=== PATIENT | male | born 1955 | race Caucasian/White ===

== ENCOUNTER 2016-12-01 03:45 | Observation (INO) | payer OTHER ==
[~2016-12-01] VITALS: Ht 172.7 cm; Wt 100.0 kg
[2016-12-01] VITALS (10 sets, daily range): BP systolic 125–182; BP diastolic 65–89; PULSE 86–99; RESP 16–24; TEMP 97.5–98.7; O2SAT 96–99
[2016-12-01] MEDS ORDERED: METF1000 PO (03:54)
[2016-12-01] MEDS ORDERED: GLIP5TAB8 PO (03:55)
[2016-12-01] MEDS ORDERED: PRAV20TA2 PO (03:55)
[2016-12-01] MEDS ORDERED: LISI-519 PO (03:55)
[2016-12-01] MEDS ORDERED: ATOR20TA15 PO (03:55)
[2016-12-01] MEDS ORDERED: SODIUM CHLOR 0.9% 1000 ML INJ 1,000 ML IV ONE ×2 (04:10→04:40)
[2016-12-01] MEDS ORDERED: SODIUM CHLORIDE 0.9% FLUSH 10 ML FLUSH IVF PRN (04:15)
[2016-12-01 04:31] LABS: AUTOMATED NEUTROPHIL # 5.6 TH/MM3 (1.8-7.7); BASOPHIL % 0.3 % (0.0-2.0); EOSINOPHIL % 0.4 % (0.0-4.0); HEMATOCRIT 36.6 % (39.0-51.0); HEMO FLAGS DIFF FINAL; LYMPH % 17.9 % (9.0-44.0); LYMPHOCYTE # 1.3 TH/MM3 (1.0-4.8); MEAN CORPUSCULAR HEMOGLOBIN 31.9 PG (27.0-34.0); MEAN CORPUSCULAR HGB CONC 34.3 % (32.0-36.0); MONO % 5.9 % (0.0-8.0); NEUT % 75.5 % (16.0-70.0); PLATELET COUNT 199 TH/MM3 (150-450); RED BLOOD COUNT 3.94 MIL/MM3 (4.50-5.90); RED CELL DISTRIBUTION WIDTH 15.3 % (11.6-17.2); WHITE BLOOD COUNT 7.4 TH/MM3 (4.0-11.0)
[2016-12-01 04:59] LABS: ANION GAP 14 MEQ/L (5-15); AST (GOT) 40 U/L (15-37); BICARBONATE 24.8 MEQ/L (21.0-32.0); BLOOD UREA NITROGEN 6 MG/DL (7-18); CHLORIDE 92 MEQ/L (98-107); GLOMERULAR FILTRATION RATE 85 ML/MIN (>89); MAGNESIUM 0.9 MG/DL (1.5-2.5); POTASSIUM 3.9 MEQ/L (3.5-5.1); SODIUM (NA) 131 MEQ/L (136-145)
[2016-12-01 05:03] LABS: ALKALINE PHOSPHATASE 60 U/L (45-117); ALT (GPT) 47 U/L (12-78); BETA-HYDROXYBUTYRATE 0.22 MMOL/L (0.00-0.39); TOTAL BILIRUBIN ADULT 0.3 MG/DL (0.2-1.0)
--- NOTE | 2016-12-01 06:03 | PD ---
HPI Chief Complaint: Diabetic Time Seen by Provider: 04:10 Travel History International Travel<30 days: No Contact w/Intl Traveler<30days: No Traveled to known affect area: No History of Present Illness HPI The patient 61 years old. He has had severe cramps in the legs for about 3 weeks. This morning he was unable to walk and had to crawl across the floor of his house to call the ambulance who then brought him to the ER. He reports drinking alcohol about 5:00 and drinks daily for a few weeks. Prior to that he was not drinking alcohol at all. He has no other complaints today. He reports trying to increase his oral hydration with water. He's been eating bananas and take potassium supplements. [place] accustomed to the heat and humidity. [facility] Past Medical History Cardiovascular Problems: Yes (HTN) High Cholesterol: Yes Diabetes: Yes Patient Takes Glucophage: Yes (11/30/16) Hypertension: Yes Past Surgical History Surgical History: No Previous Surgery Social History Alcohol Use: Yes (VODKA X 5 DRINKS/DAY) Tobacco Use: No Substance Use: No Allergies-Medications (Allergen,Severity, Reaction): Coded Allergies: Penicillin (Verified Allergy, Unknown, 12/01/16) Reported Meds & Prescriptions Reported Meds & Active Scripts Active Reported Duloxetine DR (Duloxetine HCl) 40 Mg Capdr 40 Mg PO BID Buspirone (Buspirone HCl) 15 Mg Tab 15 Mg PO TID Pravastatin 20 Mg Tab 20 Mg PO DAILY Atorvastatin (Atorvastatin Calcium) 20 Mg Tab 20 Mg PO DAILY Lisinopril 5 Mg Tab 5 Mg PO DAILY Glipizide 5 Mg Tab 5 Mg PO BIDAC Take 30 minutes before a meal Metformin (Metformin HCl) 1,000 Mg Tab 1,000 Mg PO BIDPC With meals Review of Systems Except as stated in HPI: all other systems reviewed are Neg General / Constitutional: No: Fever Respiratory: Positive: Shortness of Breath Physical Exam Narrative GENERAL: 61-year-old male pleasant well-nourished well-developed SKIN: Focused skin assessment warm/dry. HEAD: Atraumatic. Normocephalic. EYES: Pupils equal and round. No scleral icterus. No injection or drainage. ENT: No nasal bleeding or discharge. Mucous membranes pink and moist. NECK: Trachea midline. No JVD. CARDIOVASCULAR: Regular rate and rhythm. No murmur appreciated. RESPIRATORY: No accessory muscle use. Clear to auscultation. Breath sounds equal bilaterally. GASTROINTESTINAL: Abdomen soft, non-tender, nondistended. Hepatic and splenic margins not palpable. MUSCULOSKELETAL: No obvious deformities. No clubbing. No cyanosis. No edema. NEUROLOGICAL: Awake and alert. No obvious cranial nerve deficits. Motor grossly within normal limits. Normal speech. PSYCHIATRIC: Appropriate mood and affect; insight and judgment normal. Data Data Last Documented VS Vital Signs Date Time Temp Pulse Resp B/P Pulse Ox O2 Delivery O2 Flow Rate FiO2 12/01/16 05:07 21 96 Room Air 12/01/16 03:47 97.6 94 182/89 Vital signs reviewed Orders Complete Blood Count With Diff (12/01/16 04:10) Comprehensive Metabolic Panel (12/01/16 04:10) Magnesium (Mg) (12/01/16 04:10) Phosphorus (Po4) (12/01/16 04:10) Beta Hydroxybutyrate (Acetone) (12/01/16 04:10) Urinalysis - C+S If Indicated (12/01/16 04:10) Blood Glucose (12/01/16 04:10) Blood Glucose (12/01/16 05:10) Ecg Monitoring (12/01/16 04:10) Iv Access Insert/Monitor (12/01/16 04:10) Oximetry (12/01/16 04:10) NPO (12/01/16 04:10) Sodium Chlor 0.9% 1000 Ml Inj (Ns 1000 M (12/01/16 04:10) Sodium Chlor 0.9% 1000 Ml Inj (Ns 1000 M (12/01/16 04:40) Sodium Chloride 0.9% Flush (Ns Flush) (12/01/16 04:15) Magnesium Sulfate 1 Gm Premix (Magnesium (12/01/16 06:15) Admit Order (Ed Use Only) (12/01/16 06:14) Labs Laboratory Tests Test 12/01/16 12/01/16 04:20 05:52 White Blood Count 7.4 TH/MM3 Red Blood Count 3.94 MIL/MM3 Hemoglobin 12.6 GM/DL Hematocrit 36.6 % Mean Corpuscular Volume 93.0 FL Mean Corpuscular Hemoglobin 31.9 PG Mean Corpuscular Hemoglobin 34.3 % Concent Red Cell Distribution Width 15.3 % Platelet Count 199 TH/MM3 Mean Platelet Volume 6.9 FL Neutrophils (%) (Auto) 75.5 % Lymphocytes (%) (Auto) 17.9 % Monocytes (%) (Auto) 5.9 % Eosinophils (%) (Auto) 0.4 % Basophils (%) (Auto) 0.3 % Neutrophils # (Auto) 5.6 TH/MM3 Lymphocytes # (Auto) 1.3 TH/MM3 Monocytes # (Auto) 0.4 TH/MM3 Eosinophils # (Auto) 0.0 TH/MM3 Basophils # (Auto) 0.0 TH/MM3 CBC Comment DIFF FINAL Differential Comment Sodium Level 131 MEQ/L Potassium Level 3.9 MEQ/L Chloride Level 92 MEQ/L Carbon Dioxide Level 24.8 MEQ/L Anion Gap 14 MEQ/L Blood Urea Nitrogen 6 MG/DL Creatinine 0.90 MG/DL Estimat Glomerular Filtration 85 ML/MIN Rate Random Glucose 61 MG/DL Calcium Level 8.0 MG/DL Phosphorus Level 2.8 MG/DL Magnesium Level 0.9 MG/DL Total Bilirubin 0.3 MG/DL Aspartate Amino Transf 40 U/L (AST/SGOT) Alanine Aminotransferase 47 U/L (ALT/SGPT) Alkaline Phosphatase 60 U/L Total Protein 6.9 GM/DL Albumin 3.7 GM/DL B-Hydroxybutyrate 0.22 MMOL/L Urine Color LIGHT-YELLOW Urine Turbidity CLEAR Urine pH 6.0 Urine Specific [place] 1.007 Urine Protein 30 mg/dL Urine Glucose (UA) NEG mg/dL Urine Ketones NEG mg/dL Urine Occult Blood NEG Urine Nitrite NEG Urine Bilirubin NEG Urine Urobilinogen LESS THAN 2.0 MG/DL Urine Leukocyte Esterase NEG Urine WBC LESS THAN 1 /hpf Urine Squamous Epithelial <1 /hpf Cells Urine Bacteria RARE /hpf Urine Mucus FEW /lpf Microscopic Urinalysis Comment CULT NOT INDICATED MDM Medical Decision Making Medical Screen Exam Complete: Yes Emergency Medical Condition: Yes Differential Diagnosis Electrolyte imbalance, anemia, alcoholism Narrative Course CBC & BMP Diagram 12/01/16 04:20 LFTs normal Mg 0.9 Patient has hypomagnesemia, presumably the etiology of his symptoms. We will replenish. IV hydration. D/w Dr Yusuf. Diagnosis Primary Impression: Hypomagnesemia Additional Impression: Muscle cramps Admitting Information Admitting Physician Requests: Observation Corey Jules MD Dec 01, 2016 06:03
[2016-12-01 06:04] LABS: BACTERIA, URINE RARE /hpf; BLOOD, URINE NEG (NEG); COMMENT (UR) CULT NOT INDICATED; CULTURE IF INDICATED CULT NOT INDICATED; GLUCOSE,URINE NEG (NEG); KETONE, URINE NEG (NEG); MUCUS URINE FEW /lpf (OCC); NITRITE,URINE NEG (NEG); SQUAMOUS EPITHELIAL CELL URINE <1 /hpf (0-5); URINE COLOR LIGHT-YELLOW (YELLW/STRAW)
[2016-12-01] MEDS ORDERED: cloNIDine HCL 0.1 MG TAB PO PRN (06:30)
[2016-12-01] MEDS ORDERED: GLUCAGON 1 MG/ML VIAL OTHER PRN (06:30)
[2016-12-01] MEDS ORDERED: BISACODYL 10 MG SUPP RECTAL PRN (06:30)
[2016-12-01] MEDS ORDERED: LORazepam 1 MG TAB PO PRN (06:30)
[2016-12-01] MEDS ORDERED: NALOXONE HCL 0.4 MG/ML AMP IV PRN (06:30)
[2016-12-01] MEDS ORDERED: ONDANSETRON HCL 4 MG/2 ML VIAL IVP PRN (06:30)
[2016-12-01] MEDS ORDERED: FLUMAZENIL 0.5 MG/5 ML VIAL IV PUSH PRN (06:30)
[2016-12-01] MEDS ORDERED: LORazepam 2 MG/ML VIAL IV PUSH PRN ×4 (06:30)
[2016-12-01] MEDS ORDERED: DEXTROSE 50% IN WATER 50 ML VIAL(D50) IV PUSH PRN (06:30)
[2016-12-01] MEDS ORDERED: LORazepam 2 MG TAB PO PRN (06:30)
[2016-12-01] MEDS ORDERED: ACETAMINOPHEN 325 MG TAB PO PRN (06:30)
[2016-12-01] MEDS ORDERED: SODIUM CHLORIDE 0.9% FLUSH 10 ML FLUSH IV FLUSH PRN (06:30)
[2016-12-01] MEDS: MAGNESIUM SULFATE 1 GM PREMIX 100 ML IV SCH ×2 (06:32→06:35)
[2016-12-01] MEDS ORDERED: BUSP15TA PO (06:34)
[2016-12-01] MEDS ORDERED: DULO-39 PO (06:34)
[2016-12-01] MEDS: INSULIN ASPART SUPPLEMENTAL SCALE SQ SCH ×4 (07:00→20:54)
--- NOTE | 2016-12-01 08:20 | HHI.HP ---
[facility] Service [facility] Primary Care Physician Unknown Admission Diagnosis Hypomagnesemia, Muscle Cramping Diagnoses: Chief Complaint: muscle cramps, inability to ambulate Travel History International Travel<30 Days: No Contact w/Intl Traveler <30 Da: No Traveled to Known Affected Are: No History of Present Illness 61-year-old male with history of hypertension, hyperlipidemia, diabetes, anxiety /depression, presents with a 3 week history of muscle cramps and 1 day history of inability to ambulate. The patient reports yesterday his entire body was in a "spasm" and he couldn't walk. He had to crawl to the phone to call 911. He states [facility] told him his blood glucose was in the 50s upon their arrival. He states he's never had problems with low blood sugar in the past. The patient denies any changes in diet except for increased alcohol intake. He states he was previously sober for 5 years and started drinking again this year, now drinking 5 vodka beverages daily. He denies any history of alcohol withdrawal. Last alcoholic beverage 8pm last night. He denies any chest pain, shortness of breath. He denies any abdominal pain, nausea/vomiting, but does report recent diarrhea. He has no other medical complaints at this time. Review of Systems Except as stated in HPI: all other systems reviewed are Neg Past Family Social History Past Medical History HTN HLD Diabetes Depression Anxiety Past Surgical History Dental extractions Denies any other prior surgeries. Reported Medications Duloxetine DR (Duloxetine HCl) 40 Mg Capdr 40 Mg PO BID Buspirone (Buspirone HCl) 15 Mg Tab 15 Mg PO TID Pravastatin 20 Mg Tab 20 Mg PO DAILY Atorvastatin (Atorvastatin Calcium) 20 Mg Tab 20 Mg PO DAILY Lisinopril 5 Mg Tab 5 Mg PO DAILY Glipizide 5 Mg Tab 5 Mg PO BIDAC Take 30 minutes before a meal Metformin (Metformin HCl) 1,000 Mg Tab 1,000 Mg PO BIDPC With meals Allergies: Coded Allergies: Penicillin (Verified Allergy, Unknown, 12/01/16) Active Ordered Medications Current Medications Medications (Trade) Dose Ordered Sig/[place] Route Start Time Stop Time Status Last Admin (NS Flush) 2 ml UNSCH PRN IVF 12/01/16 04:15 Lisinopril 5 mg 5 mg DAILY PO 12/01/16 09:00 (NS 1000 ml Inj) 1,000 ml @ 75 mls/hr [id number] IV 12/01/16 06:23 (NS Flush) 2 ml UNSCH PRN IV FLUSH 12/01/16 06:30 (NS Flush) 2 ml BID IV FLUSH 12/01/16 09:00 (Tylenol) 650 mg Q4H PRN PO 12/01/16 06:30 (Zofran Inj) 4 mg Q6H PRN IVP 12/01/16 06:30 (Dulcolax Supp) 10 mg DAILY PRN RECTAL 12/01/16 06:30 (Narcan Inj) 0.4 mg UNSCH PRN IV 12/01/16 06:30 (Romazicon Inj) 0.2 mg Q1M PRN IV PUSH 12/01/16 06:30 (Ativan) 1 mg Q4H PRN PO 12/01/16 06:30 (Ativan Inj) 1 mg Q4H PRN IV PUSH 12/01/16 06:30 (Ativan) 2 mg Q2H PRN PO 12/01/16 06:30 (Ativan Inj) 2 mg Q2H PRN IV PUSH 12/01/16 06:30 (Ativan Inj) 2 mg Q1H PRN IV PUSH 12/01/16 06:30 (Ativan Inj) 2 mg Q15M PRN IV PUSH 12/01/16 06:30 (Librium) 10 mg TID PRN PO 12/01/16 06:30 (Catapres) 0.1 mg Q6H PRN PO 12/01/16 06:30 (D50w (Vial) Inj) 25 ml UNSCH PRN IV PUSH 12/01/16 06:30 (Glucagon Inj) 1 mg UNSCH PRN OTHER 12/01/16 06:30 Family History Mother with 2 MIs that started age 58, diabetes, hyperlipidemia Father when the patient was 7years old, does not know medical history Social History Denies tobacco use Drinks alcohol, 5 vodka beverage daily Denies any illicit drug use Physical Exam Vital Signs Vital Signs Date Time Temp Pulse Resp B/P Pulse Ox O2 Delivery O2 Flow Rate FiO2 12/01/16 08:02 86 18 170/77 98 Room Air 12/01/16 05:07 21 96 Room Air 12/01/16 03:47 97.6 94 24 182/89 98 Physical Exam GENERAL: Well-nourished, well-developed middle aged male patient in [facility]. SKIN: Warm and dry. No rash. HEAD: Normocephalic. Atraumatic. EYES: Pupils equal and round. No scleral icterus. No injection or drainage. ENT: No nasal bleeding or discharge. Mucous membranes pink and moist. NECK: Supple. Trachea midline. CARDIOVASCULAR: Regular rate and rhythm. S1, S2 noted. No murmur appreciated. RESPIRATORY: No accessory muscle use. Clear to auscultation. Breath sounds equal bilaterally. GASTROINTESTINAL: Abdomen soft, non-tender, nondistended. Normoactive bowel sounds x4. MUSCULOSKELETAL: No obvious deformities. Extremities without clubbing, cyanosis , or edema. NEUROLOGICAL: Awake and alert. No obvious cranial nerve deficits. Motor grossly within normal limits. 5/5 muscle strength in bilateral upper and lower extremities. Normal speech. PSYCHIATRIC: Appropriate mood and affect; insight and judgment normal. Laboratory Laboratory Tests Test 12/01/16 12/01/16 04:20 05:52 White Blood Count 7.4 Red Blood Count 3.94 Hemoglobin 12.6 Hematocrit 36.6 Mean Corpuscular Volume 93.0 Mean Corpuscular Hemoglobin 31.9 Mean Corpuscular Hemoglobin 34.3 Concent Red Cell Distribution Width 15.3 Platelet Count 199 Mean Platelet Volume 6.9 Neutrophils (%) (Auto) 75.5 Lymphocytes (%) (Auto) 17.9 Monocytes (%) (Auto) 5.9 Eosinophils (%) (Auto) 0.4 Basophils (%) (Auto) 0.3 Neutrophils # (Auto) 5.6 Lymphocytes # (Auto) 1.3 Monocytes # (Auto) 0.4 Eosinophils # (Auto) 0.0 Basophils # (Auto) 0.0 CBC Comment DIFF FINAL Differential Comment Sodium Level 131 Potassium Level 3.9 Chloride Level 92 Carbon Dioxide Level 24.8 Anion Gap 14 Blood Urea Nitrogen 6 Creatinine 0.90 Estimat Glomerular Filtration 85 Rate Random Glucose 61 Calcium Level 8.0 Phosphorus Level 2.8 Magnesium Level 0.9 Total Bilirubin 0.3 Aspartate Amino Transf 40 (AST/SGOT) Alanine Aminotransferase 47 (ALT/SGPT) Alkaline Phosphatase 60 Total Protein 6.9 Albumin 3.7 B-Hydroxybutyrate 0.22 Urine Color LIGHT-YELLOW Urine Turbidity CLEAR Urine pH 6.0 Urine Specific [place] 1.007 Urine Protein 30 Urine Glucose (UA) NEG Urine Ketones NEG Urine Occult Blood NEG Urine Nitrite NEG Urine Bilirubin NEG Urine Urobilinogen LESS THAN 2.0 Urine Leukocyte Esterase NEG Urine WBC LESS THAN 1 Urine Squamous Epithelial <1 Cells Urine Bacteria RARE Urine Mucus FEW Microscopic Urinalysis Comment CULT NOT INDICATED Result Diagram: 12/01/1641912/01/16419 Assessment and Plan Assessment and Plan 61-year-old male with history of hypertension, hyperlipidemia, diabetes, anxiety /depression, presents with a 3 week history of muscle cramps and 1 day history of inability to ambulate. The patient reports yesterday his entire body was in a "spasm" and he couldn't walk. He had to crawl to the phone to call 911. He states [facility] told him his blood glucose was in the 50s upon their arrival. Muscle Cramping/Inability to Ambulate: likely secondary to electrolyte depletion and alcohol abuse. Na 131, Chloride 92, Mag 0.9. Also hold patient's statin, check CPK. Given 2L IVF bolus in the ER and replaced magnesium. Patient is feeling better. Consult PT/OT. Monitor labs. Hyponatremia: likely secondary to alcohol abuse. Given IVF with NS. Repeat BMP. Hypomagnesemia: Mag 0.9. Given IV Mag Sulfate x2G. Recheck mag level. Alcohol Abuse: counseled on cessation. Continue thiamine/folate/MV. CIWA protocol. Seizure precautions. Librium prn. Monitor for withdrawal. Anxiety/Depression: chronic, continue patient's Buspar, Duloxetine. HTN: Chronic, continue patient's lisinopril. Monitor BP. HLD: chronic, hold patient's statin with muscle cramping as above. Checking CPK. Diabetes Mellitus: Hold patient's Metformin and Glipizide for now. Monitor Accu- cheks and cover with SSI. Check HgbA1c. DVT Prophylaxis: SCDs Written by Mckenna Thomson, acting as scribe for Dr. Cid on 12/01/16 at 09:15 This note was transcribed by scribe Mckenna LAWRENCE. I, Dr. Latonia Cid personally performed the history, physical exam, and medical decision making; and confirmed the accuracy of the information in the transcribed note. Authenticated by Dr. Latonia Cid on 12/01/16 at 09:15 Discussed Condition With Patient, ED Mckenna Thomson PA-C Dec 01, 2016 08:20 Latonia Cid MD Dec 01, 2016 19:35
[2016-12-01] MEDS: SODIUM CHLORIDE 0.9% FLUSH 10 ML FLUSH IV FLUSH SCH ×2 (09:21→20:53)
[2016-12-01] MEDS: SODIUM CHLOR 0.9% 1000 ML INJ 1,000 ML IV SCH ×2 (09:21→19:43)
[2016-12-01] MEDS: LISINOPRIL 5 MG TAB PO SCH (10:02)
[2016-12-01] MEDS: DULoxetine HCl DR 20 MG CAP PO SCH ×2 (10:37→20:53)
[2016-12-01] MEDS: MULTIVITAMINS/MINERALS THERAPEUTIC TAB PO SCH (11:00)
[2016-12-01] MEDS: FOLIC ACID 1 MG TAB PO SCH (11:38)
[2016-12-01] MEDS: busPIRone HCL 5 MG TAB PO SCH ×2 (11:38→17:48)
[2016-12-01] MEDS: THIAMINE HCL 100 MG TAB PO SCH (11:44)
[2016-12-01 14:31] LABS: AUTOMATED NEUTROPHIL # 4.7 TH/MM3 (1.8-7.7); BASOPHIL % 0.3 % (0.0-2.0); EOSINOPHIL % 0.6 % (0.0-4.0); HEMATOCRIT 35.9 % (39.0-51.0); HEMO FLAGS DIFF FINAL; LYMPHOCYTE # 1.9 TH/MM3 (1.0-4.8); MEAN CELL VOLUME 93.4 FL (80.0-100.0); MEAN CORPUSCULAR HEMOGLOBIN 31.8 PG (27.0-34.0); MEAN CORPUSCULAR HGB CONC 34.1 % (32.0-36.0); MONO % 8.9 % (0.0-8.0); NEUT % 64.2 % (16.0-70.0); PLATELET COUNT 201 TH/MM3 (150-450); RED BLOOD COUNT 3.85 MIL/MM3 (4.50-5.90); RED CELL DISTRIBUTION WIDTH 15.2 % (11.6-17.2); WHITE BLOOD COUNT 7.3 TH/MM3 (4.0-11.0)
[2016-12-01 14:59] LABS: BICARBONATE 27.3 MEQ/L (21.0-32.0); MAGNESIUM 1.5 MG/DL (1.5-2.5); POTASSIUM 4.2 MEQ/L (3.5-5.1)
[2016-12-01 15:22] LABS: CKMB 8.4 NG/ML (0.5-3.6)
[2016-12-01 16:58] LABS: HEMOGLOBIN A1a 1.5 %; HEMOGLOBIN A1b 1.8 %; HEMOGLOBIN Ao 83.5 %; HEMOGLOBIN LA1C 2.6 %; HEMOGLOBIN P3 3.8 %
[2016-12-02 00:03] VITALS: BP 133/72; PULSE 88; RESP 18; TEMP 98.7; O2SAT 95
[2016-12-02 02:58] VITALS: BP 144/81; PULSE 93; RESP 20; TEMP 97.9; O2SAT 96
[2016-12-02] MEDS: SODIUM CHLOR 0.9% 1000 ML INJ 1,000 ML IV SCH ×2 (06:23→08:40)
[2016-12-02] MEDS: INSULIN ASPART SUPPLEMENTAL SCALE SQ SCH (06:26)
[2016-12-02 07:42] LABS: HEMATOCRIT 38.6 % (39.0-51.0); MEAN CELL VOLUME 94.7 FL (80.0-100.0); MEAN CORPUSCULAR HEMOGLOBIN 31.5 PG (27.0-34.0); MEAN CORPUSCULAR HGB CONC 33.3 % (32.0-36.0); PLATELET COUNT 158 TH/MM3 (150-450); RED BLOOD COUNT 4.07 MIL/MM3 (4.50-5.90); RED CELL DISTRIBUTION WIDTH 15.8 % (11.6-17.2); WHITE BLOOD COUNT 5.1 TH/MM3 (4.0-11.0)
[2016-12-02 07:47] VITALS: BP 168/81; PULSE 81; RESP 20; TEMP 97.9; O2SAT 98
[2016-12-02 07:58] LABS: HEMO FLAGS AUTO DIFF
[2016-12-02 08:04] LABS: BICARBONATE 26.3 MEQ/L (21.0-32.0); MAGNESIUM 1.7 MG/DL (1.5-2.5); POTASSIUM 4.5 MEQ/L (3.5-5.1)
[2016-12-02] MEDS: FOLIC ACID 1 MG TAB PO SCH (08:39)
[2016-12-02] MEDS: MULTIVITAMINS/MINERALS THERAPEUTIC TAB PO SCH (08:39)
[2016-12-02] MEDS: busPIRone HCL 5 MG TAB PO SCH (08:39)
[2016-12-02] MEDS: DULoxetine HCl DR 20 MG CAP PO SCH (08:39)
[2016-12-02] MEDS: LISINOPRIL 5 MG TAB PO SCH (08:39)
[2016-12-02] MEDS: SODIUM CHLORIDE 0.9% FLUSH 10 ML FLUSH IV FLUSH SCH (08:39)
[2016-12-02] MEDS: THIAMINE HCL 100 MG TAB PO SCH (08:39)
[2016-12-02 08:49] LABS: BANDS 5 % (0-6); BASOPHILS 1 % (0-2); EOSINOPHILS 1 % (0-4); NEUTROPHIL # MANUAL DIFF 3.6 TH/MM3 (1.8-7.7); PLATELET ESTIMATE SMEAR NORMAL (NORMAL); PLATELET MORPHOLOGY NORMAL (NORMAL); POLYS (SEG NEUTROPHILS) 66 % (16-70); SCAN/DIFF FINAL DIFF MANUAL; WBC DIFF SAMPLE 100
[2016-12-02] MEDS ORDERED: FOLI1TAB4 PO (09:43)
[2016-12-02] MEDS ORDERED: THERM PO (09:43)
[2016-12-02] MEDS ORDERED: VITA100T2 PO (09:43)
--- NOTE | 2016-12-02 09:50 | HHI.PR ---
Subjective Remarks Follow-up for muscle cramping. Patient denies any tremors, chest pain, shortness breath, palpitations, headache, lightheadedness. He still has some calf discomfort today from all of the muscle spasms yesterday. He reports good urine output. He states that he plans to stay off of alcohol. Objective Vitals Vital Signs Date Time Temp Pulse Resp B/P Pulse Ox O2 Delivery O2 Flow Rate FiO2 12/02/16 07:47 97.9 81 20 168/81 98 12/02/16 02:58 97.9 93 20 144/81 96 12/02/16 00:03 98.7 88 18 133/72 95 12/01/16 20:19 98.7 99 20 128/65 96 12/01/16 20:10 96 12/01/16 15:45 97.7 92 19 125/66 97 12/01/16 12:22 133/78 12/01/16 11:00 90 12/01/16 10:39 97.5 96 20 174/79 96 I/O 12/01/16 12/01/16 12/01/16 12/02/16 12/02/16 12/02/16 07:00 15:00 23:00 07:00 15:00 23:00 Intake Total 446 ml Balance 446 ml Intake Oral 221 ml IV Total 225 ml # Voids 1 Result Diagram: 12/02/16 0711 12/02/16 0711 Objective Remarks GENERAL: Well-developed well-nourished. In no acute distress. SKIN: Warm and dry. No lesions noted. HEENT: Normocephalic. Pupils equal and round. Mucous membranes pink and moist. CARDIOVASCULAR: Regular rate and rhythm. No murmur appreciated. RESPIRATORY: No accessory muscle use. Clear to auscultation. Breath sounds equal bilaterally. GASTROINTESTINAL: Abdomen soft, non-tender, nondistended. Bowel sounds x4. MUSCULOSKELETAL: No obvious deformities. No clubbing or cyanosis. No edema. NEUROLOGICAL: Awake and alert. No focal neurological deficits. Moves upper and lower extremities spontaneously. Normal speech. PSYCHIATRIC: Appropriate mood and affect; insight and judgment normal. A/P Assessment and Plan 61-year-old male with history of hypertension, hyperlipidemia, diabetes, anxiety /depression, presents with a 3 week history of muscle cramps and 1 day history of inability to ambulate. The patient reports yesterday his entire body was in a "spasm" and he couldn't walk. He had to crawl to the phone to call 911. He states [facility] told him his blood glucose was in the 50s upon their arrival. Muscle Cramping/Inability to Ambulate: likely secondary to multiple electrolyte abnormalities and hypoglycemia. Likely contributed to by alcohol abuse. Na 131 , Chloride 92, Mag 0.9, CPK 437, glucose 61. Given IVF and replaced magnesium. Hold statin and glipizide. Symptoms improved. Consulted PT/OT, no restrictions. Hyponatremia: likely secondary to alcohol abuse. Given IVF with NS. Repeat BMP with sodium within normal limits. Hypomagnesemia: Mag 0.9. Given IV Mag Sulfate x2G. repeat magnesium 1.7, within normal limits. Alcohol Abuse: counseled on cessation. Continue thiamine/folate/MV. Covered with CIWA protocol. No signs of withdrawal. Anxiety/Depression: chronic, continue patient's Buspar, Duloxetine. HTN: Chronic, continue patient's lisinopril. Monitor BP. HLD: chronic, but possible statin-induced myelopathy. CPK 437, mild elevation, downtrending. Hold patient's statin with muscle cramping as above and follow- up with PCP, discussed with the patient. Diabetes Mellitus: Presented with hypoglycemia. Coverage with SSI. Monitored Accu-Cheks. Well-controlled at home, hemoglobin A1c 6.2. Will resume home metformin. Hold glipizide with hypoglycemia, discussed with the patient. Follow-up with PCP. DVT Prophylaxis: SCDs Written by Ki Rivera, acting as scribe for Dr. Cid on 12/02/16 at 09:46. This note was transcribed by narinder LAWRENCE. I, Dr. Latonia Cid personally performed the history, physical exam, and medical decision making; and confirmed the accuracy of the information in the transcribed note. Authenticated by Dr. Latonia Cid on 12/02/16 at 09:46. Discharge time > 30 min Discharge Planning Discharge patient to home Condition on discharge: Improved Heart healthy diabetic Diet as tolerated Regular activity Rx written: Thiamine, folate, multivitamin Follow-up with primary care physician Ki Rivera Dec 02, 2016 09:50 Latonia Cid MD Dec 02, 2016 21:46
== END 2016-12-02 10:45 | disposition home or self-care (01) ==
LOC: NEPE 03:45 → NEDA 06:16 → NEPHCDU 10:10
PROVIDERS: ADMIT Hospitalist; ATTEND Hospitalist
DX: E83.42 Hypomagnesemia (principal); E87.1 Hypo-osmolality and hyponatremia; I10 Essential (primary) hypertension; E78.5 Hyperlipidemia, unspecified; E78.00 Pure hypercholesterolemia, unspecified; E11.649 Type 2 diabetes mellitus with hypoglycemia without coma; F10.10 Alcohol abuse, uncomplicated; F32.9 Major depressive disorder, single episode, unspecified; F41.9 Anxiety disorder, unspecified; Z79.84 Long term (current) use of oral hypoglycemic drugs
CPT/HCPCS: 80048; 80053; 81001; 82010; 82550; 82552; 82948; 83036; 83735; 84100; 85007; 85025; 85027; 96360; 97161; 97165; 99285; G0378; G8987; G8988; G8989; J1815; J3475; J7030

== ENCOUNTER 2017-11-22 17:26 | Inpatient (IN) | payer OTHER, MEDICARE ==
[~2017-11-22] VITALS: Ht 180.3 cm; Wt 107.5 kg
[~2017-11-22 17:26] MED LIST: BUSP15TA PO; DULO-39 PO; FOLI1TAB4 PO; LISI-519 PO; METF1000 PO; THERM PO; VITA100T2 PO
[2017-11-22 17:27] VITALS: BP 150/82; PULSE 75; RESP 19; TEMP 98.9; O2SAT 100
[2017-11-22 17:30] VITALS: O2SAT 100
[2017-11-22] MEDS ORDERED: SODIUM CHLOR 0.9% 1000 ML INJ 1,000 ML IV ONE (17:30)
--- NOTE | 2017-11-22 17:47 | RADRPT ---
EXAM DATE/TIME: 11/22/2017 17:36 [facility] COMPARISON: No previous studies available for comparison. INDICATIONS : Stroke alert, dysphasia. RADIATION DOSE: 46.25 CTDIvol (mGy) This report was called by Shahab Osullivan at 1744 MEDICAL HISTORY : Non-responsive. SURGICAL HISTORY : Non-responsive. ENCOUNTER: Initial ACUITY: 1 day PAIN SCALE: Non-responsive LOCATION: Bilateral head TECHNIQUE: Multiple contiguous axial images were obtained of the head. Using automated exposure control and adj ustment of the mA and/or kV according to patient size, radiation dose was kept as low as reasonably a chievable to obtain optimal diagnostic quality images. DICOM format image data is available electro nically for review and comparison. FINDINGS: CEREBRUM: The ventricles are normal for age. No evidence of midline shift, mass lesion, hemorrhage or acute in farction. No extra-axial fluid collections are seen. POSTERIOR FOSSA: The cerebellum and brainstem are intact. The 4th ventricle is midline. The cerebellopontine angle i s unremarkable. EXTRACRANIAL: The visualized portion of the orbits is intact. SKULL: The calvaria is intact. No evidence of skull fracture. CONCLUSION: Normal examination. Francisco Gudino MD on November 22, 2017 at 17:43 Board Certified Radiologist. This report was verified electronically.
[2017-11-22 17:50] VITALS: BP 190/87; PULSE 70; RESP 17; O2SAT 100
[2017-11-22] MEDS ORDERED: IODIXANOL 320 MG/ML 10 ML VIAL (for Rad CT) IVCONTRAST ONE (17:50)
[2017-11-22 17:51] LABS: AUTOMATED NEUTROPHIL # 4.5 TH/MM3 (1.8-7.7); BASOPHIL # 0.1 TH/MM3 (0-0.2); BASOPHIL % 1.3 % (0.0-2.0); EOSINOPHIL # 0.1 TH/MM3 (0-0.4); EOSINOPHIL % 0.9 % (0.0-4.0); HEMATOCRIT 35.5 % (39.0-51.0); HEMOGLOBIN 12.3 GM/DL (13.0-17.0); LYMPHOCYTE # 1.8 TH/MM3 (1.0-4.8); MEAN CELL VOLUME 94.6 FL (80.0-100.0); MEAN CORPUSCULAR HEMOGLOBIN 32.7 PG (27.0-34.0); MEAN CORPUSCULAR HGB CONC 34.6 % (32.0-36.0); MEAN PLATELET VOLUME 6.9 FL (7.0-11.0); MONO % 7.3 % (0.0-8.0); MONOCYTE # 0.5 TH/MM3 (0-0.9); NEUT % 64.5 % (16.0-70.0); PLATELET COUNT 219 TH/MM3 (150-450); RED BLOOD COUNT 3.75 MIL/MM3 (4.50-5.90); RED CELL DISTRIBUTION WIDTH 16.5 % (11.6-17.2)
--- NOTE | 2017-11-22 17:59 | RADRPT ---
EXAM DATE/TIME: 11/22/2017 17:41 [facility] COMPARISON: No previous studies available for comparison. INDICATIONS : Stroke alert, dysphasia. IV CONTRAST: 98 cc Visipaque (iodixanol) IV RADIATION DOSE: 28.65 CTDIvol (mGy) MEDICAL HISTORY : Non-responsive. SURGICAL HISTORY : Non-responsive. ENCOUNTER: Initial ACUITY: 1 day PAIN SCALE: Non-responsive LOCATION: Bilateral head TECHNIQUE: Volumetric scanning was performed using a multi-row detector CT scanner. The data was post processed with a variety of visualization algorithms including full volume maximum intensity projection, multi -planar sliding thin slab reformation, curved planar reformation, and surface rendering techniques. Using automated exposure control and adjustment of the mA and/or kV according to patient size, radiat ion dose was kept as low as reasonably achievable to obtain optimal diagnostic quality images. DICO M format image data is available electronically for review and comparison. FINDINGS: There is excellent visualization of the major intracranial arteries out to the second-order branch ve ssels. There is no evidence for aneurysm, vessel truncation or stenosis, and no evidence for vascula r malformation. CONCLUSION: Normal examination. Francisco Gudino MD on November 22, 2017 at 17:55 Board Certified Radiologist. This report was verified electronically.
[2017-11-22 18:04] LABS: INTERNATIONAL NORMALIZED RATIO 1.1 RATIO; PROTHROMBIN TIME - PATIENT 10.9 SEC (9.8-11.6)
[2017-11-22 18:11] LABS: TROPONIN I LESS THAN 0.02 NG/ML (0.02-0.05)
--- NOTE | 2017-11-22 18:13 | RADRPT ---
EXAM DATE/TIME: 11/22/2017 17:41 [facility] COMPARISON: No previous studies available for comparison. INDICATIONS : Stroke alert, dysphasia. IV CONTRAST: 98 cc Visipaque (iodixanol) IV ; Cumulative dose for multiple exams. RADIATION DOSE: 28.65 CTDIvol (mGy) ; Combined studies MEDICAL HISTORY : Non-responsive. SURGICAL HISTORY : Non-responsive. ENCOUNTER: Initial ACUITY: 1 day PAIN SCALE: Non-responsive LOCATION: Bilateral neck Elevated flow velocities and ICA/CCA ratios have been found to correlate with increased degrees of vessel stenosis, calculated as percentage of diameter relative to a normal segment of distal ICA/CCA. TECHNIQUE: Volumetric scanning was performed using a multirow detector CT scanner. The data was post processed with a variety of visualization algorithms including full-volume maximum intensity projection, multip lanar sliding thin-slab reformation, curved-planar reformation, and surface-rendering techniques. Us ing automated exposure control and adjustment of the mA and/or kV according to patient size, radiatio n dose was kept as low as reasonably achievable to obtain optimal diagnostic quality images. DICOM f ormat image data is available electronically for review and comparison. FINDINGS: AORTIC ARCH: There is a three-vessel origin of the great vessels from the aorta. No evidence of ostial narrowing. RIGHT CAROTID: Dense intimal calcifications at the carotid bifurcation. No significant stenotic narrowing. ICA is wi steve patent the skull base. LEFT CAROTID: Dense concentric calcific plaque involving the bulb and left ICA origin. No significant stenotic narr owing. Left ICA is widely patent the skull base. VERTEBRALS: The vertebral arteries have a symmetric diameter. No stenotic lesions are seen. CONCLUSION: No evidence of carotid stenosis. Francisco Gudino MD on November 22, 2017 at 18:08 Board Certified Radiologist. This report was verified electronically.
--- NOTE | 2017-11-22 18:49 | PD ---
HPI Time Seen by Provider: 17:30 History of Present Illness HPI Patient is a 62 year old male who comes in as a stroke alert. Per EMS, he was found in a parking lot, with low blood sugar. EMS reports a blood sugar of 31. EMS states they gave him D10 and he returned to normal. They say that a few minutes later he developed slurring of his speech, so they issued a stroke alert. Patient is asymptomatic on arrival. He says that he took his diabetes medication (Glyburide and Metformin) and did not eat today. His friend says that they were out since 11AM and had not eaten anything. She says they were drinking alcohol today. Severity is mild to moderate. PFSH Past Medical History Asthma: No Blood Disorders: No Anxiety: Yes Depression: Yes Heart Rhythm Problems: No Cancer: No Cardiovascular Problems: Yes (HTN) High Cholesterol: Yes Chemotherapy: No Chest Pain: No Congestive Heart Failure: No COPD: No Diabetes: Yes Endocrine: No Hypertension: Yes Immune Disorder: No Musculoskeletal: No Neurologic: No Psychiatric: No Reproductive: No Respiratory: No Radiation Therapy: No Sleep Apnea: No Thyroid Disease: No Social History Alcohol Use: Yes (VODKA X 5 DRINKS/DAY) Tobacco Use: No Substance Use: No Allergies-Medications (Allergen,Severity, Reaction): Coded Allergies: penicillin G (Unverified Allergy, Unknown, 03/24/17) Reported Meds & Prescriptions Reported Meds & Active Scripts Active Vitamin B-1 (Thiamine HCl) 100 Mg Tab 100 Mg PO DAILY Thera M Plus (Multivitamins/Minerals Therapeutic) 1 Tab 1 Tab PO DAILY Folate (Folic Acid) 1 Mg Tab 1 Mg PO DAILY Reported Duloxetine DR (Duloxetine HCl) 40 Mg Capdr 40 Mg PO BID Buspirone (Buspirone HCl) 15 Mg Tab 15 Mg PO TID Lisinopril 5 Mg Tab 5 Mg PO DAILY Metformin (Metformin HCl) 1,000 Mg Tab 1,000 Mg PO BIDPC With meals Review of Systems Except as stated in HPI: all other systems reviewed are Neg General / Constitutional: No: Fever, Chills Eyes: No: Blurred Vision HENT: No: Headaches, Vertigo, Lightheadedness Cardiovascular: No: Chest Pain or Discomfort Respiratory: No: Shortness of Breath Gastrointestinal: No: Nausea, Vomiting Musculoskeletal: No: Myalgias, Edema Skin: No Rash, No Change in Pigmentation Neurologic: Positive: Slurred Speech Physical Exam Narrative GENERAL: Awake and alert, in no acute distress. SKIN: Focused skin assessment warm/dry. No wounds or signs of infection. HEAD: Atraumatic. Normocephalic. EYES: Pupils equal and round and reactive. No scleral icterus. EOMI. ENT: Mucous membranes pink and moist. NECK: Trachea midline. No JVD. CARDIOVASCULAR: Regular rate and rhythm. No murmur appreciated. RESPIRATORY: No accessory muscle use. Clear to auscultation. Breath sounds equal bilaterally. GASTROINTESTINAL: Abdomen soft, non-tender, nondistended. MUSCULOSKELETAL: No obvious deformities. No clubbing. No cyanosis. No edema. NEUROLOGICAL: Awake and alert. No obvious cranial nerve deficits. Motor grossly within normal limits. Normal speech. PSYCHIATRIC: Appropriate mood and affect; insight and judgment normal. Data Data Last Documented VS Vital Signs Date Time Temp Pulse Resp B/P (MAP) Pulse Ox O2 Delivery O2 Flow Rate FiO2 11/22/17 17:30 100 Nasal Cannula 2.00 Orders Orders Diet Npo (11/22/17 Dinner) Activity Bed Rest (11/22/17 ) Electrocardiogram (11/22/17 ) I-Stat Profile (11/22/17 17:30) Prothrombin Time / Inr (Pt) (11/22/17 17:30) Act Partial Throm Time (Ptt) (11/22/17 17:30) Complete Blood Count With Diff (11/22/17 17:30) Fibrinogen (11/22/17 17:30) Creatine Kinase (Cpk) (11/22/17 17:30) Troponin I (11/22/17 17:30) Ua Includes Microscopic (11/22/17 17:30) Drug Screen, Random Urine (11/22/17 17:30) Type And Screen (11/22/17 17:30) Ct Brain W/O Iv Contrast(Rout) (11/22/17 ) Chest, Single Ap (11/22/17 ) Cta Brain W Iv Contrast W 3d (11/22/17 17:30) Cta Neck W Iv Contrast W 3d (11/22/17 17:30) Consult Neurology (11/22/17 ) Blood Glucose (11/22/17 17:30) Ecg Monitoring (11/22/17 17:30) Neuro Checks Q2HX12,Q4H (11/22/17 17:30) Nursing Bedside Swallow Assess .ONCE (11/22/17 17:30) Iv Access Insert/Monitor (11/22/17 17:30) NPO (11/22/17 17:30) Oximetry (11/22/17 17:30) Resp Oxygen Nc Stroke (11/22/17 ) Sodium Chlor 0.9% 1000 Ml Inj (Ns 1000 M (11/22/17 17:30) Cath For Specimen (11/22/17 17:30) Iodixanol 320 Inj (Rad Ct) (Visipaque 32 (11/22/17 17:50) (Hub Use Only)Inp Phy Cons/Ref (11/22/17 ) Labs Laboratory Tests Test 11/22/17 17:28 White Blood Count 7.0 TH/MM3 Red Blood Count 3.75 MIL/MM3 Hemoglobin 12.3 GM/DL Bedside Hemoglobin 12.9 G/DL Hematocrit 35.5 % Bedside Hematocrit 38.0 % Mean Corpuscular Volume 94.6 FL Mean Corpuscular Hemoglobin 32.7 PG Mean Corpuscular Hemoglobin Concent 34.6 % Red Cell Distribution Width 16.5 % Platelet Count 219 TH/MM3 Mean Platelet Volume 6.9 FL Neutrophils (%) (Auto) 64.5 % Lymphocytes (%) (Auto) 26.0 % Monocytes (%) (Auto) 7.3 % Eosinophils (%) (Auto) 0.9 % Basophils (%) (Auto) 1.3 % Neutrophils # (Auto) 4.5 TH/MM3 Lymphocytes # (Auto) 1.8 TH/MM3 Monocytes # (Auto) 0.5 TH/MM3 Eosinophils # (Auto) 0.1 TH/MM3 Basophils # (Auto) 0.1 TH/MM3 CBC Comment DIFF FINAL Differential Comment Prothrombin Time 10.9 SEC Prothromb Time International Ratio 1.1 RATIO Activated Partial Thromboplast Time 25.1 SEC Fibrinogen 252 mg/dL Bedside Sodium 129 MMOL/L Bedside Potassium 3.8 MMOL/L Bedside Chloride 88 MMOL/L Bedside Blood Urea Nitrogen 8 MG/DL Bedside Creatinine 1.2 MG/DL Bedside Glucose 119 MG/DL Total Creatine Kinase 197 U/L Troponin I LESS THAN 0.02 NG/ML MDM Medical Decision Making Medical Screen Exam Complete: Yes Emergency Medical Condition: Yes Medical Record Reviewed: Yes Differential Diagnosis CVA vs hypoglycemia vs TIA vs intoxication Narrative Course Patient is a 62 year old male who comes in as a stroke alert. Symptoms are resolved on arrival. IV established, labs sent. Connected to the cardiac nurse. Taken to CT for head CT. CT head shows no acute abnormalities. Patient's sugar dropped again to 77. Given something to eat. I spoke with neurologist, Dr. Osullivan who will see the patient in consultation. CTA head and neck show no acute abnormalities. Last 24 hours Impressions Neck CTA 11/22/17 1730 Signed Impressions: Service Date/Time: Wednesday, November 22, 2017 17:41 - CONCLUSION: No evidence of carotid stenosis. Francisco Gudino MD Head CTA 11/22/17 1730 Signed Impressions: Service Date/Time: Wednesday, November 22, 2017 17:41 - CONCLUSION: Normal examination. Francisco Gudino MD Head CT 11/22/17 0000 Signed Impressions: Service Date/Time: Wednesday, November 22, 2017 17:36 - CONCLUSION: Normal examination. Francisco Gudino MD Given a dose of D50. Will be admitted for further management. Diagnosis Primary Impression: Hypoglycemia Additional Impression: TIA (transient ischemic attack) Jacquelin Lawrence MD Nov 22, 2017 18:49
[2017-11-22 18:50] VITALS: BP 148/75; PULSE 72; RESP 18; O2SAT 100
--- NOTE | 2017-11-22 18:55 | RADRPT ---
EXAM DATE/TIME: 11/22/2017 18:20 [facility] COMPARISON: No previous studies available for comparison. INDICATIONS : Stroke Alert MEDICAL HISTORY : None. SURGICAL HISTORY : None. ENCOUNTER: Initial ACUITY: 1 day PAIN SCORE: Non-responsive. LOCATION: chest FINDINGS: A single view of the chest demonstrates the lungs to be symmetrically aerated without evidence of mas s, infiltrate or effusion. The cardiomediastinal contours are unremarkable. Spurring is seen in the thoracic spine. CONCLUSION: No acute disease. Francisco Gamboa MD on November 22, 2017 at 18:53 Board Certified Radiologist. This report was verified electronically.
[2017-11-22] MEDS ORDERED: DEXTROSE 50% IN WATER 50 ML SYRINGE IV PUSH ONE (19:00)
[2017-11-22] MEDS ORDERED: ASPIRIN 81 MG CHEW TAB CHEW ONE (19:00)
[2017-11-22] MEDS ORDERED: ACETAMINOPHEN 325 MG TAB PO PRN (19:15)
[2017-11-22] MEDS ORDERED: GLUCAGON 1 MG/ML VIAL OTHER PRN (19:15)
[2017-11-22] MEDS ORDERED: BISACODYL 10 MG SUPP RECTAL PRN (19:15)
[2017-11-22] MEDS ORDERED: DEXTROSE 50% IN WATER 50 ML VIAL(D50) IV PUSH PRN (19:15)
[2017-11-22] MEDS ORDERED: SENNOSIDES 8.6 MG TAB PO PRN (19:15)
[2017-11-22] MEDS ORDERED: ACETAMINOPHEN/HYDROcodone 325 MG/5 MG TAB PO PRN (19:15)
[2017-11-22] MEDS ORDERED: MAGNESIUM HYDROXIDE SUSP 30 ML CUP PO PRN (19:15)
[2017-11-22] MEDS ORDERED: ONDANSETRON HCL 4 MG/2 ML VIAL IVP PRN (19:15)
[2017-11-22] MEDS ORDERED: ACETAMINOPHEN/HYDROcodone 325 MG/10 MG TAB PO PRN (19:15)
[2017-11-22] MEDS ORDERED: LACTULOSE SYRUP 20 GM/30 ML CUP PO PRN (19:15)
[2017-11-22] MEDS ORDERED: ENALAPRILAT 1.25 MG/ML VIAL IV PUSH PRN (19:15)
[2017-11-22] MEDS ORDERED: SODIUM CHLORIDE 0.9% FLUSH 10 ML FLUSH IV FLUSH PRN ×2 (19:15)
--- NOTE | 2017-11-22 19:58 | HHI.HP ---
[facility] Unknown Admission Diagnosis AMS, hypoglycemia, TIA Diagnoses: (1) TIA (transient ischemic attack) Diagnosis: Principal (2) Hypoglycemia Diagnosis: Principal (3) HTN (hypertension) Diagnosis: Principal (4) Alcohol use Diagnosis: Principal Travel History International Travel<30 Days: No Contact w/Intl Traveler <30 Da: No Traveled to Known Affected Are: No History of Present Illness This is a 62-year-old male with a PMH of Anxiety, Depression, HTN and DM who is brought to the ER by EMS as a Stroke Alert. Per report, patient was found in a parking lot with slurred speech and gait instability. EMS noted BS of 31, s/p D10 w/ normalization of BS, however had recurrent episode of hypoglycemia. Pt now back to baseline, states he had sudden episode of garbled speech w/ gait instability, felt like he was falling to one side. Denies fall, LOC or head trauma. On Metformin 1000mg bid and Glipizide qd, states took both this morning. Denies recent nausea, vomiting or diarrhea. On arrival, BP 150/82, HR 75, O2 sat 100% on 2L NC, Afebrile. CBC essentially unremarkable. Na 129, otherwise unremarkable. Troponin negative. INR 1.1. CT Head with no acute findings. CXR negative. CTA Neck negative for carotid stenosis. CTA Head normal. Drinks 5 Vodka drinks per day, denies withdrawal. Review of Systems Except as stated in HPI: all other systems reviewed are Neg ROS: 14 point review of systems otherwise negative. Past Family Social History Past Medical History PMH: Anxiety, Depression, HTN and DM Past Surgical History PAST SURGICAL HISTORY: None Allergies: Coded Allergies: penicillin G (Unverified Allergy, Unknown, 03/24/17) Family History PAST FAMILY HISTORY: Reviewed. No h/o DM or CAD Social History PAST SOCIAL HISTORY: Drinks 5 Vodka drinks/day. Negative for tobacco or drugs. Physical Exam Vital Signs Vital Signs Date Time Temp Pulse Resp B/P (MAP) Pulse Ox O2 Delivery O2 Flow Rate FiO2 11/22/17 18:50 72 18 148/75 (99) 100 Nasal Cannula 2.00 11/22/17 18:40 100 Nasal Cannula 2.00 11/22/17 17:50 70 17 190/87 (121) 100 Nasal Cannula 2.00 11/22/17 17:30 100 Nasal Cannula 2.00 11/22/17 17:30 100 2.00 11/22/17 17:27 98.9 75 19 150/82 (104) 100 Physical Exam PE: GENERAL: Pleasant middle-age male in no acute distress. Awake alert oriented HEENT: PERRLA, EOMI. No scleral icterus or conjunctival pallor. No lid lag or facial droop. CARDIOVASCULAR: Regular rate and rhythm. No obvious murmurs to auscultation. No chest tenderness to palpation. RESPIRATORY: No obvious rhonchi or wheezing. Clear to auscultation. Breath sounds equal bilaterally. GASTROINTESTINAL: Abdomen soft, non-tender, nondistended. BS normal. MUSCULOSKELETAL: Extremities without clubbing, cyanosis, or edema. No obvious deformities. NEUROLOGICAL: Awake, alert and oriented x4. No focal neurologic deficits. Moving both upper and lower extremities spontaneously. Laboratory Laboratory Tests Test 11/22/17 17:28 White Blood Count 7.0 Red Blood Count 3.75 Hemoglobin 12.3 Bedside Hemoglobin 12.9 Hematocrit 35.5 Bedside Hematocrit 38.0 Mean Corpuscular Volume 94.6 Mean Corpuscular Hemoglobin 32.7 Mean Corpuscular Hemoglobin Concent 34.6 Red Cell Distribution Width 16.5 Platelet Count 219 Mean Platelet Volume 6.9 Neutrophils (%) (Auto) 64.5 Lymphocytes (%) (Auto) 26.0 Monocytes (%) (Auto) 7.3 Eosinophils (%) (Auto) 0.9 Basophils (%) (Auto) 1.3 Neutrophils # (Auto) 4.5 Lymphocytes # (Auto) 1.8 Monocytes # (Auto) 0.5 Eosinophils # (Auto) 0.1 Basophils # (Auto) 0.1 CBC Comment DIFF FINAL Differential Comment Prothrombin Time 10.9 Prothromb Time International Ratio 1.1 Activated Partial Thromboplast Time 25.1 Fibrinogen 252 Bedside Sodium 129 Bedside Potassium 3.8 Bedside Chloride 88 Bedside Blood Urea Nitrogen 8 Bedside Creatinine 1.2 Bedside Glucose 119 Total Creatine Kinase 197 Troponin I LESS THAN 0.02 Result Diagram: 11/22/17 1728 Caprini VTE Risk Assessment Caprini VTE Risk Assessment: No/Low Risk (score <= 1) Caprini Risk Assessment Model Point Value = 1 Point Value = 2 Point Value = 3 Point Value = 5 Age 41-60 Minor surgery BMI > 25 kg/m2 Swollen legs Varicose veins or History of unexplained or recurrent spontaneous Oral contraceptives or hormone replacement Sepsis (< 1 month) Serious lung disease, including pneumonia (< 1 month) Abnormal pulmonary function Acute myocardial infarction Congestive heart failure (< 1 month) History of inflammatory bowel disease Medical patient at bed rest Age 61-74 Arthroscopic surgery Major open surgery (> 45 min) Laparoscopic surgery (> 45 min) Malignancy Confined to bed (> 72 hours) Immobilizing plaster cast Central venous access Age >= 75 History of VTE Family history of VTE Factor V Leiden Prothrombin [id number] Lupus anticoagulant Anticardiolipin antibodies Elevated serum homocysteine Heparin-induced thrombocytopenia Other congenital or acquired thrombophilia Stroke (< 1 month) Elective arthroplasty Hip, pelvis, or leg fracture Acute spinal cord injury (< 1 month) Prophylaxis Regimen Total Risk Factor Score Risk Level Prophylaxis Regimen 0-1 Low Early ambulation 2 Moderate Order ONE of the following: *Sequential Compression Device (SCD) *Heparin 5000 units SQ BID 3-4 Higher Order ONE of the following medications: *Heparin 5000 units SQ TID *Enoxaparin/Lovenox 40 mg SQ daily (WT < 150 kg, CrCl > 30 mL/min) *Enoxaparin/Lovenox 30 mg SQ daily (WT < 150 kg, CrCl > 10-29 mL/min) *Enoxaparin/Lovenox 30 mg SQ BID (WT < 150 kg, CrCl > 30 mL/min) AND/OR *Sequential Compression Device (SCD) 5 or more Highest Order ONE of the following medications: *Heparin 5000 units SQ TID (Preferred with Epidurals) *Enoxaparin/Lovenox 40 mg SQ daily (WT < 150 kg, CrCl > 30 mL/min) *Enoxaparin/Lovenox 30 mg SQ daily (WT < 150 kg, CrCl > 10-29 mL/min) *Enoxaparin/Lovenox 30 mg SQ BID (WT < 150 kg, CrCl > 30 mL/min) AND *Sequential Compression Device (SCD) Assessment and Plan Problem List: (1) TIA (transient ischemic attack) ICD Code: G45.9 - Transient cerebral ischemic attack, unspecified Status: Acute (2) Hypoglycemia ICD Code: E16.2 - Hypoglycemia, unspecified Status: Acute (3) HTN (hypertension) ICD Code: I10 - Essential (primary) hypertension (4) Alcohol use ICD Code: Z78.9 - Other specified health status Assessment and Plan A/P: 1. TIA: brought to ER as Stroke Alert for acute slurred speech/gait instability, symptoms resolved spontaneously after few minutes, likely attributed to hypoglycemic episode, BS 31. CT Head w/ no acute findings, CTA Head/Neck w/ no abnormalities, images reviewed by me. Dr. Conley consulted, will evaluate in am. Neuro checks, Echo to eval for possible thromboembolic event, initial trop negative, check serial cardiac enzymes to eval for possible underlying ischemia. 2. Hypoglycemia: BS 31, s/p D10 w/ recurrent episodes of hypoglycemia. Start Hypoglycemic Protocol. Hold home Metformin/Glipizide. Accu-Checks q2h x12h, then q4h once stabilized. 3. HTN: Uncontrolled. BP 190's on arrival, will monitor, hold antihypertensives for now in light of possible TIA. 4. DVT Prophylaxis: SCD/Teds 5. Social work for d/c planning as needed. 6. Case discussed w/ ER physician at length, labs/records/imaging reviewed by me. Physician Certification 2 Midnight Certification Type: Admission for Inpatient Services Order for Inpatient Services The services are ordered in accordance with Medicare regulations or non- Medicare payer requirements, as applicable. In the case of services not specified as inpatient-only, they are appropriately provided as inpatient services in accordance with the 2-midnight benchmark. Estimated LOS (days): 2 days is the estimated time the patient will need to remain in the hospital, assuming treatment plan goals are met and no additional complications. Post-Hospital Plan: Not yet determined Chrystal Varma MD Nov 22, 2017 19:58
[2017-11-22 21:00] VITALS: BP 135/69; PULSE 84; RESP 17; TEMP 97.6; O2SAT 98
[2017-11-22] MEDS ORDERED: PRAVASTATIN SOD 40 MG TAB PO SCH (21:00)
[2017-11-22] MEDS: SODIUM CHLORIDE 0.9% FLUSH 10 ML FLUSH IV FLUSH SCH ×2 (21:00→21:52)
[2017-11-22] MEDS ORDERED: FLUMAZENIL 0.5 MG/5 ML VIAL IV PUSH PRN (21:30)
[2017-11-22] MEDS ORDERED: HALOPERIDOL LACTATE 5 MG/ML AMP IM PRN (21:30)
[2017-11-22] MEDS ORDERED: LORazepam 2 MG/ML VIAL IV PUSH PRN ×4 (21:30)
[2017-11-22] MEDS ORDERED: LORazepam 2 MG TAB PO PRN (21:30)
[2017-11-22] MEDS ORDERED: LORazepam 1 MG TAB PO PRN (21:30)
[2017-11-22] MEDS: DOCUSATE SODIUM 50 MG/SENNA 8.6 MG TAB PO SCH (21:52)
[2017-11-22] MEDS: THIAMINE HCL 100 MG TAB PO SCH (21:52)
[2017-11-22 22:20] VITALS: PULSE 81
[2017-11-23] VITALS (9 sets, daily range): BP systolic 123–180; BP diastolic 62–89; PULSE 79–87; RESP 18–19; TEMP 97.1–98.2; O2SAT 96–97
[2017-11-23 00:53] LABS: BILIRUBIN, URINE NEG (NEG); BLOOD, URINE NEG (NEG); GLUCOSE,URINE NEG (NEG); KETONE, URINE NEG (NEG); NITRITE,URINE NEG (NEG); URINE COLOR LIGHT-YELLOW (YELLW/STRAW); URINE LEUKOCYTE ESTERASE NEG (NEG)
[2017-11-23 07:37] LABS: AUTOMATED NEUTROPHIL # 4.5 TH/MM3 (1.8-7.7); BASOPHIL % 0.7 % (0.0-2.0); EOSINOPHIL % 0.8 % (0.0-4.0); HEMATOCRIT 35.9 % (39.0-51.0); HEMOGLOBIN 12.2 GM/DL (13.0-17.0); LYMPH % 19.5 % (9.0-44.0); LYMPHOCYTE # 1.3 TH/MM3 (1.0-4.8); MEAN CELL VOLUME 95.3 FL (80.0-100.0); MEAN CORPUSCULAR HEMOGLOBIN 32.4 PG (27.0-34.0); MEAN PLATELET VOLUME 7.5 FL (7.0-11.0); MONO % 10.7 % (0.0-8.0); MONOCYTE # 0.7 TH/MM3 (0-0.9); NEUT % 68.3 % (16.0-70.0); PLATELET COUNT 193 TH/MM3 (150-450); RED BLOOD COUNT 3.77 MIL/MM3 (4.50-5.90); RED CELL DISTRIBUTION WIDTH 16.6 % (11.6-17.2); WHITE BLOOD COUNT 6.6 TH/MM3 (4.0-11.0)
[2017-11-23 07:57] LABS: ALBUMIN 3.4 GM/DL (3.4-5.0); ALT (GPT) 58 U/L (12-78); AST (GOT) 62 U/L (15-37); BICARBONATE 23.7 MEQ/L (21.0-32.0); CALCIUM 8.1 MG/DL (8.5-10.1); CHLORIDE 99 MEQ/L (98-107); CHOLESTEROL 143 MG/DL (120-200); CREATININE 0.79 MG/DL (0.60-1.30); GLOMERULAR FILTRATION RATE 99 ML/MIN (>89); GLUCOSE,RANDOM 77 MG/DL (74-106); SODIUM (NA) 133 MEQ/L (136-145); TRIGLYCERIDES 81 MG/DL (42-150)
[2017-11-23 08:05] LABS: ALKALINE PHOSPHATASE 58 U/L (45-117); BLOOD UREA NITROGEN 9 MG/DL (7-18); CHOLESTEROL/ HDL RATIO 2.89 RATIO; HDL CHOLESTEROL 49.4 MG/DL (40.0-60.0); LDL CHOLESTEROL 77 MG/DL (0-99); TOTAL BILIRUBIN ADULT 0.5 MG/DL (0.2-1.0); TOTAL PROTEIN 7.1 GM/DL (6.4-8.2); TROPONIN I LESS THAN 0.02 NG/ML (0.02-0.05)
[2017-11-23] MEDS: THIAMINE HCL 100 MG TAB PO SCH (08:39)
[2017-11-23] MEDS: DOCUSATE SODIUM 50 MG/SENNA 8.6 MG TAB PO SCH (08:40)
[2017-11-23] MEDS: SODIUM CHLORIDE 0.9% FLUSH 10 ML FLUSH IV FLUSH SCH ×2 (08:43)
[2017-11-23] MEDS ORDERED: FOLIC ACID 1 MG TAB PO SCH (09:00)
[2017-11-23] MEDS ORDERED: MULTIVITAMINS/MINERALS THERAPEUTIC TAB PO SCH (09:00)
[2017-11-23] MEDS ORDERED: ASPIRIN 81 MG CHEW TAB PO SCH (09:00)
--- NOTE | 2017-11-23 10:13 | EKG ---
Date Performed: 11/22/2017 Time Performed: 19:26:59 PTAGE: 62 years EKG: Sinus rhythm WITH FIRST DEGREE AV BLOCK ABNORMAL ECG NO PREVIOUS TRACING DOCTOR: Leandro Kelsey Interpretating Date/Time 11/23/2017 10:11:47
--- NOTE | 2017-11-23 10:25 | HHI.PR ---
Subjective Remarks This is a 62-year-old male with a PMH of Anxiety, Depression, HTN and DM who is brought to the ER by EMS as a Stroke Alert. Per report, patient was found in a parking lot with slurred speech and gait instability. EMS noted BS of 31, s/p D10 w/ normalization of BS, however had recurrent episode of hypoglycemia. Pt now back to baseline, states he had sudden episode of garbled speech w/ gait instability, felt like he was falling to one side. Denies fall, LOC or head trauma. On Metformin 1000mg bid and Glipizide qd, states took both this morning. Denies recent nausea, vomiting or diarrhea. On arrival, BP 150/82, HR 75, O2 sat 100% on 2L NC, Afebrile. CBC essentially unremarkable. Na 129, otherwise unremarkable. Troponin negative. INR 1.1. CT Head with no acute findings. CXR negative. CTA Neck negative for carotid stenosis. CTA Head normal. Drinks 5 Vodka drinks per day, denies withdrawal. 11-23 patient is not a stroke alert. Was found to be hypoglycemic with a blood sugars in the 30s patient was taking his oral glycemic's without eating. Patient drinks daily. Is ambulating well. We will restart his blood pressure medications. And he can be discharged home today. Discharge to home today Follow up with his primary Dr. Vergara Objective Vitals Vital Signs Date Time Temp Pulse Resp B/P (MAP) Pulse Ox O2 Delivery O2 Flow Rate FiO2 11/23/17 08:00 97.5 83 19 179/89 (119) 96 11/23/17 05:30 156/72 (100) 11/23/17 04:15 98.2 87 18 174/78 (110) 96 11/23/17 04:05 83 11/23/17 01:08 97 11/23/17 00:20 97.6 84 18 123/62 (82) 96 11/23/17 00:00 79 11/22/17 22:20 81 11/22/17 21:00 97.6 84 17 135/69 (91) 98 11/22/17 20:39 11/22/17 18:50 72 18 148/75 (99) 100 Nasal Cannula 2.00 11/22/17 18:40 100 Nasal Cannula 2.00 11/22/17 17:50 70 17 190/87 (121) 100 Nasal Cannula 2.00 11/22/17 17:30 100 Nasal Cannula 2.00 11/22/17 17:30 100 2.00 11/22/17 17:27 98.9 75 19 150/82 (104) 100 I/O 11/22/17 11/22/17 11/22/17 11/23/17 11/23/17 11/23/17 07:00 15:00 23:00 07:00 15:00 23:00 Intake Total 955 ml Output Total 1275 ml Balance -320 ml Intake Oral 480 ml IV Total 475 ml Output Urine Total 1275 ml # Bowel Movements 0 Result Diagram: 11/23/17 0603 11/23/17 0603 Other Results Laboratory Tests Test 11/22/17 17:28 11/23/17 00:16 11/23/17 00:18 11/23/17 06:03 White Blood Count 7.0 TH/MM3 6.6 TH/MM3 Red Blood Count 3.75 MIL/MM3 3.77 MIL/MM3 Hemoglobin 12.3 GM/DL 12.2 GM/DL Bedside Hemoglobin 12.9 G/DL Hematocrit 35.5 % 35.9 % Bedside Hematocrit 38.0 % Mean Corpuscular Volume 94.6 FL 95.3 FL Mean Corpuscular Hemoglobin 32.7 PG 32.4 PG Mean Corpuscular Hemoglobin Concent 34.6 % 34.0 % Red Cell Distribution Width 16.5 % 16.6 % Platelet Count 219 TH/MM3 193 TH/MM3 Mean Platelet Volume 6.9 FL 7.5 FL Neutrophils (%) (Auto) 64.5 % 68.3 % Lymphocytes (%) (Auto) 26.0 % 19.5 % Monocytes (%) (Auto) 7.3 % 10.7 % Eosinophils (%) (Auto) 0.9 % 0.8 % Basophils (%) (Auto) 1.3 % 0.7 % Neutrophils # (Auto) 4.5 TH/MM3 4.5 TH/MM3 Lymphocytes # (Auto) 1.8 TH/MM3 1.3 TH/MM3 Monocytes # (Auto) 0.5 TH/MM3 0.7 TH/MM3 Eosinophils # (Auto) 0.1 TH/MM3 0.0 TH/MM3 Basophils # (Auto) 0.1 TH/MM3 0.0 TH/MM3 CBC Comment DIFF FINAL DIFF FINAL Differential Comment Prothrombin Time 10.9 SEC Prothromb Time International Ratio 1.1 RATIO Activated Partial Thromboplast Time 25.1 SEC Fibrinogen 252 mg/dL Bedside Sodium 129 MMOL/L Bedside Potassium 3.8 MMOL/L Bedside Chloride 88 MMOL/L Bedside Blood Urea Nitrogen 8 MG/DL Bedside Creatinine 1.2 MG/DL Bedside Glucose 119 MG/DL Total Creatine Kinase 197 U/L Troponin I LESS THAN 0.02 NG/ML LESS THAN 0.02 NG/ML LESS THAN 0.02 NG/ML Urine Color LIGHT-YELLOW Urine Turbidity CLEAR Urine pH 6.0 Urine Specific [place] 1.020 Urine Protein NEG mg/dL Urine Glucose (UA) NEG mg/dL Urine Ketones NEG mg/dL Urine Occult Blood NEG Urine Nitrite NEG Urine Bilirubin NEG Urine Urobilinogen LESS THAN 2.0 MG/DL Urine Leukocyte Esterase NEG Urine RBC LESS THAN 1 /hpf Urine WBC 1 /hpf Urine Opiates Screen NEG Urine Barbiturates Screen NEG Urine Amphetamines Screen NEG Urine Benzodiazepines Screen NEG Urine Cocaine Screen NEG Urine Cannabinoids Screen NEG Blood Urea Nitrogen 9 MG/DL Creatinine 0.79 MG/DL Random Glucose 77 MG/DL Total Protein 7.1 GM/DL Albumin 3.4 GM/DL Calcium Level 8.1 MG/DL Alkaline Phosphatase 58 U/L Aspartate Amino Transf (AST/SGOT) 62 U/L Alanine Aminotransferase (ALT/SGPT) 58 U/L Total Bilirubin 0.5 MG/DL Sodium Level 133 MEQ/L Potassium Level 4.1 MEQ/L Chloride Level 99 MEQ/L Carbon Dioxide Level 23.7 MEQ/L Anion Gap 10 MEQ/L Estimat Glomerular Filtration Rate 99 ML/MIN Triglycerides Level 81 MG/DL Cholesterol Level 143 MG/DL LDL Cholesterol 77 MG/DL HDL Cholesterol 49.4 MG/DL Cholesterol/HDL Ratio 2.89 RATIO Imaging Last Impressions Neck CTA 11/22/17 173 Signed Impressions: Service Date/Time: Wednesday, November 22, 2017 17:41 - CONCLUSION: No evidence of carotid stenosis. Francisco Gudino MD Head CTA 11/22/17 173 Signed Impressions: Service Date/Time: Wednesday, November 22, 2017 17:41 - CONCLUSION: Normal examination. Francisco Gudino MD Head CT 11/22/17 0000 Signed Impressions: Service Date/Time: Wednesday, November 22, 2017 17:36 - CONCLUSION: Normal examination. Francisco Gudino MD Chest X-Ray 11/22/17 0000 Signed Impressions: Service Date/Time: Wednesday, November 22, 2017 18:20 - CONCLUSION: No acute disease. Francisco Gamboa MD Objective Remarks GENERAL: Awake alert and oriented 3 talkative and cooperative SKIN: Warm and dry. HEAD: Atraumatic. Normocephalic. EYES: Pupils equal and round. No scleral icterus. No injection or drainage. Extraocular muscles intact ENT: No nasal bleeding or discharge. Mucous membranes pink and moist. Tongue is midline NECK: Trachea midline. No JVD. Supple CARDIOVASCULAR: Regular rate and rhythm. S1-S2 no S3-S4 no heave or thrill or rub or gallop RESPIRATORY: No accessory muscle use. Clear to auscultation. Breath sounds equal bilaterally. GASTROINTESTINAL: Abdomen soft, non-tender, nondistended. Hepatic and splenic margins not palpable. Obese MUSCULOSKELETAL: Extremities without clubbing, cyanosis, or edema. No obvious deformities. NEUROLOGICAL: Awake and alert. No obvious cranial nerve deficits. Motor grossly within normal limits. Five out of 5 muscle strength in the arms and legs. Normal speech. PSYCHIATRIC: Appropriate mood and affect; insight and judgment normal. Procedures None Medications and IVs Current Medications Sodium Chloride 1,000 ml @ 70 mls/hr [id number] ONCE IV Last administered on 11/22 19:10; Start 11/22/17 at 17:30; Stop 11/23/17 at 07:47; Status DC Iodixanol (VISIPAQUE 320 INJ (Rad CT)) 98 ml STK-MED ONCE IVCONTRAST Last administered on 11/22/17at 17:50; Start 11/22/17 at 17:50; Stop 11/22/17 at 17:51 ; Status DC Dextrose (D50w (Syr) Inj) 25 ml ONCE ONCE IV PUSH Last administered on 19:10; Start 11/22/17 at 19:00; Stop 11/22/17 at 19:01; Status DC Aspirin (Aspirin Chew) 324 mg ONCE ONCE CHEW Last administered on 11/22/17 19 :10; Start 11/22/17 at 19:00; Stop 11/22/17 at 19:01; Status DC Dextrose (D50w (Vial) Inj) 50 ml UNSCH PRN IV PUSH HYPOGLYCEMIA-SEE COMMENTS; Start 11/22/17 at 19:15 Glucagon (Glucagon Inj) 1 mg UNSCH PRN OTHER HYPOGLYCEMIA-SEE COMMENTS; Start 11/22/17 at 19:15 Sodium Chloride (NS Flush) 2 ml BID IV FLUSH Last administered on 11/22/17at 21: 52; Start 11/22/17 at 21:00 Sodium Chloride (NS Flush) 2 ml UNSCH PRN IV FLUSH FLUSH AFTER USING IV ACCESS ; Start 11/22/17 at 19:15 Enalaprilat (Vasotec Inj) 1.25 mg Q4H PRN IV PUSH For SBP > 220 or DBP > 120; Start 11/22/17 at 19:15 Aspirin (Aspirin Chew) 81 mg DAILY PO Last administered on 11/23/17at 08:40; Start 11/23/17 at 09:00 Pravastatin Sodium (Pravachol) 40 mg HS PO Last administered on 11/22/17at 21:52 ; Start 11/22/17 at 21:00 Sodium Chloride (NS Flush) 2 ml UNSCH PRN IV FLUSH FLUSH AFTER USING IV ACCESS ; Start 11/22/17 at 19:15 Sodium Chloride (NS Flush) 2 ml BID IV FLUSH ; Start 11/22/17 at 21:00 Ondansetron HCl (Zofran Inj) 4 mg Q6H PRN IVP NAUSEA OR VOMITING; Start at 19:15 Acetaminophen (Tylenol) 650 mg Q6H PRN PO FEVER/PAIN SCALE 1 TO 2; Start at 19:15 Acetaminophen/ Hydrocodone Bitart (Climax 5-325 Mg) 1 tab Q4H PRN PO PAIN SCALE 3 TO 5; Start 11/22/17 at 19:15 Acetaminophen/ Hydrocodone Bitart (Climax 10-325 Mg) 1 tab Q4H PRN PO PAIN SCALE 6 TO 10; Start 11/22/17 at 19:15 Senna/Docusate Sodium (Aruna-Colace) 1 tab BID PO Last administered on at 21:52; Start 11/22/17 at 21:00 Magnesium Hydroxide (Milk Of Magnesia Liq) 30 ml Q12H PRN PO Mild constipation ; Start 11/22/17 at 19:15 Sennosides (Senokot) 17.2 mg Q12H PRN PO Moderate constipation; Start 11/22/17 at 19:15 Bisacodyl (Dulcolax Supp) 10 mg DAILY PRN RECTAL SEVERE CONSITIPATION; Start at 19:15 Lactulose (Lactulose Liq) 30 ml DAILY PRN PO SEVERE CONSITIPATION; Start at 19:15 Folic Acid (Folate) 1 mg DAILY PO Last administered on 11/23/17at 08:40; Start 11/23/17 at 09:00; Stop 11/28/17 at 08:59 Thiamine HCl (Vitamin B1) 100 mg DAILY PO Last administered on 11/23/17at 08:39 ; Start 11/22/17 at 21:30 Multivitamins/ Minerals Therapeutic (Theragran M Tab) 1 tab DAILY PO Last administered on 11/23/17at 08:39; Start 11/23/17 at 09:00; Stop 11/28/17 at 08:59 Flumazenil (Romazicon Inj) 0.2 mg Q1M PRN IV PUSH SEE LABEL COMMENTS; Start at 21:30 Lorazepam (Ativan) 1 mg Q4H PRN PO CIWA 8 - 10; Start 11/22/17 at 21:30 Lorazepam (Ativan Inj) 1 mg Q4H PRN IV PUSH CIWA 8 - 10; Start 11/22/17 at 21: 30 Lorazepam (Ativan) 2 mg Q2H PRN PO CIWA 11-14; Start 11/22/17 at 21:30 Lorazepam (Ativan Inj) 2 mg Q2H PRN IV PUSH CIWA 11-14; Start 11/22/17 at 21:30 Lorazepam (Ativan Inj) 2 mg Q1H PRN IV PUSH CIWA 15-20; Start 11/22/17 at 21:30 Lorazepam (Ativan Inj) 2 mg Q15M PRN IV PUSH CIWA > 20; Start 11/22/17 at 21:30 Haloperidol Lactate (Haldol Inj) 2 mg Q15M PRN IM SEE LABEL COMMENTS; Start at 21:30 A/P Problem List: (1) TIA (transient ischemic attack) ICD Code: G45.9 - Transient cerebral ischemic attack, unspecified Status: Acute (2) Hypoglycemia ICD Code: E16.2 - Hypoglycemia, unspecified Status: Acute (3) HTN (hypertension) ICD Code: I10 - Essential (primary) hypertension (4) Alcohol use ICD Code: Z78.9 - Other specified health status Assessment and Plan 1. TIA: brought to ER as Stroke Alert for acute slurred speech/gait instability, symptoms resolved spontaneously after few minutes, likely attributed to hypoglycemic episode, BS 31. CT Head w/ no acute findings, CTA Head/Neck w/ no abnormalities, images reviewed by me. . Neuro checks, Echo to eval for possible thromboembolic event, initial trop negative, check serial cardiac enzymes to eval for possible underlying ischemia. Does not appear to be a TIA appears to be more a hypoglycemic event. Will discontinue neuro consult 2. Hypoglycemia: BS 31, s/p D10 w/ recurrent episodes of hypoglycemia. Start Hypoglycemic Protocol. Hold home Metformin/Glipizide. Accu-Checks q2h x12h, then q4h once stabilized. 3. HTN: Uncontrolled. BP 190's on arrival, will monitor, hold antihypertensives for now in light of possible TIA. Restart his blood pressure medications-doubt TIA suspect due to hypoglycemia 4. DVT Prophylaxis: SCD/Teds Discharge Planning We will DC to home later today Christian Yanes DO Nov 23, 2017 10:25
[2017-11-23] MEDS ORDERED: DULO-39 PO (10:32)
[2017-11-23] MEDS ORDERED: BUSP15TA PO (10:32)
[2017-11-23] MEDS ORDERED: FOLI1TAB6 PO (10:32)
[2017-11-23] MEDS ORDERED: ASPI81 PO (10:32)
[2017-11-23] MEDS ORDERED: THERM PO (10:32)
[2017-11-23] MEDS ORDERED: METF1000 PO (10:32)
[2017-11-23] MEDS ORDERED: PROT40TA PO (10:32)
[2017-11-23] MEDS ORDERED: PRAV40TA PO (10:32)
[2017-11-23] MEDS ORDERED: THIA100 PO (10:32)
[2017-11-23] MEDS ORDERED: LISI-515 PO (10:32)
--- NOTE | 2017-11-23 10:33 | HHI.DS ---
Discharge Summary Admission Date Nov 22, 2017 at 18:55 Discharge Date: Nov 23, 2017 Admitting Diagnosis AMS, hypoglycemia, TIA (1) TIA (transient ischemic attack) ICD Code: G45.9 - Transient cerebral ischemic attack, unspecified Diagnosis: Principal Status: Acute (2) Hypoglycemia ICD Code: E16.2 - Hypoglycemia, unspecified Diagnosis: Principal Status: Acute (3) HTN (hypertension) ICD Code: I10 - Essential (primary) hypertension Diagnosis: Secondary (4) Alcohol use ICD Code: Z78.9 - Other specified health status Diagnosis: Secondary Procedures None Brief History - From Admission This is a 62-year-old male with a PMH of Anxiety, Depression, HTN and DM who is brought to the ER by EMS as a Stroke Alert. Per report, patient was found in a parking lot with slurred speech and gait instability. EMS noted BS of 31, s/p D10 w/ normalization of BS, however had recurrent episode of hypoglycemia. Pt now back to baseline, states he had sudden episode of garbled speech w/ gait instability, felt like he was falling to one side. Denies fall, LOC or head trauma. On Metformin 1000mg bid and Glipizide qd, states took both this morning. Denies recent nausea, vomiting or diarrhea. On arrival, BP 150/82, HR 75, O2 sat 100% on 2L NC, Afebrile. CBC essentially unremarkable. Na 129, otherwise unremarkable. Troponin negative. INR 1.1. CT Head with no acute findings. CXR negative. CTA Neck negative for carotid stenosis. CTA Head normal. Drinks 5 Vodka drinks per day, denies withdrawal. CBC/BMP: 11/23/17 0603 11/23/17 0603 Significant Findings Laboratory Tests Test 11/22/17 17:28 11/23/17 00:16 11/23/17 00:18 11/23/17 06:03 Red Blood Count 3.75 MIL/MM3 (4.50-5.90) 3.77 MIL/MM3 (4.50-5.90) Hemoglobin 12.3 GM/DL (13.0-17.0) 12.2 GM/DL (13.0-17.0) Bedside Hemoglobin 12.9 G/DL (13.0-17.0) Hematocrit 35.5 % (39.0-51.0) 35.9 % (39.0-51.0) Bedside Hematocrit 38.0 % (39.0-51.0) Mean Platelet Volume 6.9 FL (7.0-11.0) Bedside Sodium 129 MMOL/L (137-144) Bedside Chloride 88 MMOL/L (102-111) Bedside Glucose 119 MG/DL (68-110) Troponin I LESS THAN 0.02 NG/ML LESS THAN 0.02 NG/ML LESS THAN 0.02 NG/ML Monocytes (%) (Auto) 10.7 % (0.0-8.0) Calcium Level 8.1 MG/DL (8.5-10.1) Aspartate Amino Transf (AST/SGOT) 62 U/L (15-37) Sodium Level 133 MEQ/L (136-145) Imaging Last Impressions Neck CTA 11/22/17 1730 Signed Impressions: Service Date/Time: Wednesday, November 22, 2017 17:41 - CONCLUSION: No evidence of carotid stenosis. Francisco Gudino MD Head CTA 11/22/17 1730 Signed Impressions: Service Date/Time: Wednesday, November 22, 2017 17:41 - CONCLUSION: Normal examination. Francisco Gudino MD Head CT 11/22/17 0000 Signed Impressions: Service Date/Time: Wednesday, November 22, 2017 17:36 - CONCLUSION: Normal examination. Francisco Gudino MD Chest X-Ray 11/22/17 0000 Signed Impressions: Service Date/Time: Wednesday, November 22, 2017 18:20 - CONCLUSION: No acute disease. Francisco Gamboa MD PE at Discharge GENERAL: Awake alert and oriented 3 talkative and cooperative SKIN: Warm and dry. HEAD: Atraumatic. Normocephalic. EYES: Pupils equal and round. No scleral icterus. No injection or drainage. Extraocular muscles intact ENT: No nasal bleeding or discharge. Mucous membranes pink and moist. Tongue is midline NECK: Trachea midline. No JVD. Supple CARDIOVASCULAR: Regular rate and rhythm. S1-S2 no S3-S4 no heave or thrill or rub or gallop RESPIRATORY: No accessory muscle use. Clear to auscultation. Breath sounds equal bilaterally. GASTROINTESTINAL: Abdomen soft, non-tender, nondistended. Hepatic and splenic margins not palpable. Obese MUSCULOSKELETAL: Extremities without clubbing, cyanosis, or edema. No obvious deformities. NEUROLOGICAL: Awake and alert. No obvious cranial nerve deficits. Motor grossly within normal limits. Five out of 5 muscle strength in the arms and legs. Normal speech. PSYCHIATRIC: Appropriate mood and affect; insight and judgment normal. Hospital Course This is a 62-year-old male with a PMH of Anxiety, Depression, HTN and DM who is brought to the ER by EMS as a Stroke Alert. Per report, patient was found in a parking lot with slurred speech and gait instability. EMS noted BS of 31, s/p D10 w/ normalization of BS, however had recurrent episode of hypoglycemia. Pt now back to baseline, states he had sudden episode of garbled speech w/ gait instability, felt like he was falling to one side. Denies fall, LOC or head trauma. On Metformin 1000mg bid and Glipizide qd, states took both this morning. Denies recent nausea, vomiting or diarrhea. On arrival, BP 150/82, HR 75, O2 sat 100% on 2L NC, Afebrile. CBC essentially unremarkable. Na 129, otherwise unremarkable. Troponin negative. INR 1.1. CT Head with no acute findings. CXR negative. CTA Neck negative for carotid stenosis. CTA Head normal. Drinks 5 Vodka drinks per day, denies withdrawal. 4-16 patient is not a stroke alert. Was found to be hypoglycemic with a blood sugars in the 30s patient was taking his oral glycemic's without eating. Patient drinks daily. Is ambulating well. We will restart his blood pressure medications. And he can be discharged home today. Discharge to home today Follow up with his primary Dr. Vergara Pt Condition on Discharge: Good Discharge Disposition: Discharge Home Discharge Time: > 30 minutes Discharge Instructions DIET: Follow Instructions for: Heart Healthy Diet, Diabetic Diet Speech Therapy-Diet Recommends: Regular Activities you can perform: Regular-No Restrictions Follow up Referrals: PCP Follow-up - 2-3 Days New Medications: Pantoprazole (Protonix) 40 Mg Tab 40 MG PO DAILY for Reflux, #30 TAB 0 Refills Aspirin (Tgt Aspirin) 81 Mg Chw 81 MG PO DAILY for Blood Clot Prevention, #30 EA Folic Acid (Folic Acid) 1 Mg Tablet 1 MG PO DAILY for Nutritional Supplement, #30 TAB Lisinopril (Lisinopril) 20 Mg Tab 20 MG PO Q12HR for Blood Pressure Management, #60 TAB Pravastatin (Pravachol) 40 Mg Tab 40 MG PO HS for Cholesterol Management, #30 TAB Thiamine HCl (Gnp Vitamin B-1) 100 Mg Tab 100 MG PO DAILY for Nutritional Supplement, #30 TAB Continued Medications: Buspirone (Buspirone) 15 Mg Tab 15 MG PO TID for Anxiety, #90 TAB 0 Refills (This prescription has been renewed) Duloxetine DR (Duloxetine DR) 40 Mg Capdr 40 MG PO BID for Depression Control, #60 CAP 0 Refills (This prescription has been renewed) Metformin (Metformin) 1,000 Mg Tab 1000 MG PO BIDPC for Blood Sugar Management, #60 TAB 0 Refills (This prescription has been renewed) With meals Multiple Vitamins W/ Minerals (Thera M Plus) 1 Tab 1 TAB PO DAILY for Nutritional Supplement, #30 TAB (This prescription has been renewed) Discontinued Medications: Folic Acid (Folate) 1 Mg Tab 1 MG PO DAILY for Nutritional Supplement, #5 TAB Lisinopril (Lisinopril) 5 Mg Tab 5 MG PO DAILY for Blood Pressure Management, #30 TAB 0 Refills Thiamine (Vitamin B-1) 100 Mg Tab 100 MG PO DAILY for Nutritional Supplement, #5 TAB Christian Yanes DO Nov 23, 2017 10:33
--- NOTE | 2017-11-23 10:51 | MB ---
cc: Bismark Mendez MD DATE: 11/23/2017 HISTORY OF PRESENT ILLNESS: He is a 62-year-old seen in neurological consultation. He came in yesterday and there is a history of diabetes mellitus. He was not eating well yesterday and felt his blood sugar was way down to 30. EMS noted it to be 31. He came in as a Stroke Alert. There was some gait instability and slurring of his speech. He felt his legs cramp on him. He was dizzy, fell on his right knee. He has improved and feels just fine this morning. PAST MEDICAL HISTORY: There is a history of diabetes mellitus, history of sciatica on the right, recent neurosurgical appointment and going for MRI. He has history of anxiety and depression. SOCIAL HISTORY: He drinks vodka daily. NEUROLOGICAL EXAMINATION: The neurological exam showed normal mentation. Intraocular movements and visual gold full. Pupils were equal and reactive. No facial weakness. Speech is normal. Reflexes were 1+ but probably absent at the ankles and plantar responses were flexor. He probably has left thenar muscle wasting. ASSESSMENT: 1. Transient neurologic symptoms, perhaps due to hypoglycemia, resolved. CT angio head and neck without significant abnormalities. CT brain negative. 2. Probable left carpal tunnel syndrome. Outpatient EMG and subsequent care. RECOMMENDATIONS: 1. I will request an MRI brain on him. 2. Checking a lipid profile not. 3. I will follow the neurological care. Thank you for asking us to assist in his care. Bismark Mendez MD OFC/SB , 10:19 AM , 10:50 AM
[2017-11-23] MEDS ORDERED: LISINOPRIL 20 MG TAB PO SCH (11:15)
[2017-11-23] MEDS ORDERED: busPIRone HCL 5 MG TAB PO SCH (13:00)
[2017-11-23 15:13] LABS: HEMOGLOBIN A1C 5.6 % (4.3-6.0)
[2017-11-23] MEDS ORDERED: DULoxetine HCl DR 20 MG CAP PO SCH (21:00)
== END 2017-11-23 11:50 | disposition home or self-care (01) | DRG 69 ==
LOC: NEPE 17:26 → NEDA 18:55 → N06A 21:05
PROVIDERS: ADMIT Hospitalist; ATTEND Hospitalist
DX: G45.9 Transient cerebral ischemic attack, unspecified (principal); E11.649 Type 2 diabetes mellitus with hypoglycemia without coma; I10 Essential (primary) hypertension; Z79.84 Long term (current) use of oral hypoglycemic drugs; Z72.89 Other problems related to lifestyle; F41.9 Anxiety disorder, unspecified; F32.9 Major depressive disorder, single episode, unspecified
CPT/HCPCS: 70450; 70496; 70498; 71045; 80048; 80053; 80061; 80307; 81001; 82550; 82948; 83036; 84484; 85025; 85384; 85610; 85730; 86850; 86900; 86901; 93005; 93306; 99285; J7030; Q9967